=== PATIENT | female | born 2000 | race Caucasian/White ===

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

== ENCOUNTER 2018-02-13 18:45 | Emergency (ER) | payer BC ==
[2018-02-13] MEDS ORDERED: NORMAL SALINE 1000 ML 1,000 ML IV ONE ×2 (20:30→22:47)
[2018-02-13] MEDS ORDERED: METOCLOPRAMIDE HCL INJ/PF 10 MG/2 ML SDV IV ONE (20:30)
--- NOTE | 2018-02-13 20:32 | ER Document Report ---
ED Medical Screen (RME) - General Chief Complaint: Nausea/Vomiting Stated Complaint: CRAMPING/CHEST PAIN Time Seen by Provider: 02/13/18 20:26 Notes: 17-year-old female, at around 6 weeks gestation by last menstrual period reportedly, chief complaint of 2 days of persistent vomiting and nausea. She reports she has pain in her upper abdomen now. Denies fever, dizziness, passing out, vaginal bleeding, lower abdominal pain. No daily medications. Past medical history of appendectomy. TRAVEL OUTSIDE OF THE [place] IN LAST 30 DAYS: No - Related Data Allergies/Adverse Reactions: Latex, Natural Rubber Allergy (Verified 12/29/17 21:11) Past Medical History Renal/ Medical History: Denies: Hx Peritoneal Dialysis Past Surgical History: Reports: Hx Appendectomy Physical Exam - Vital signs Vitals: Temp Pulse Resp BP Pulse Ox 98.8 F 76 16 112/65 100 02/13/18 19:08 02/13/18 19:08 02/13/18 19:08 02/13/18 19:08 02/13/18 19:08 - General General appearance: Appears well In distress: None - Abdominal Tenderness: Tender - Mild generalized upper abdominal tenderness, lower abdomen benign, exam limited by sitting position Course - Re-evaluation Re-evalutation: I have greeted and performed a rapid initial assessment of this patient. A comprehensive ED assessment and evaluation of the patient, analysis of test results and completion of the medical decision making process will be conducted by additional ED providers. - Vital Signs Vital signs: Temp Pulse Resp BP Pulse Ox 98.8 F 76 16 112/65 100 02/13/18 19:08 02/13/18 19:08 02/13/18 19:08 02/13/18 19:08 02/13/18 19:08
[2018-02-13 21:53] LABS: ABSOLUTE LYMPHOCYTES (AUTO) 3.1 10^3/uL (0.5-4.7); ABSOLUTE MONOCYTES (AUTO) 0.6 10^3/uL (0.1-1.4); BASOPHILS % (AUTO) 0.3 % (0-2); EOSINOPHILS % (AUTO) 0.2 % (0-6); HEMATOCRIT 38.5 % (36.0-47.0); HEMOGLOBIN 13.2 g/dL (12.0-15.5); MEAN CORPUSCULAR HEMOGLOBIN 32.3 pg (27.0-33.4); MEAN CORPUSCULAR HGB CONC 34.3 g/dL (32.0-36.0); MEAN CORPUSCULAR VOLUME 94 fl (80-97); PLATELET COUNT 257 10^3/uL (150-450); RED BLOOD COUNT 4.08 10^6/uL (3.72-5.28); RED CELL DISTRIBUTION WIDTH 13.2 % (11.5-14.0); SEGMENTED NEUTROPHILS % (AUTO) 70.5 % (42-78); TOTAL CELLS COUNTED % (AUTO) 100 %; WHITE BLOOD COUNT 12.7 10^3/uL (4.0-10.5)
[2018-02-13 21:59] LABS: APPEARANCE,URINE SLIGHTLY-CLOUDY; BILIRUBIN,URINE NEGATIVE (NEGATIVE); COLOR,URINE YELLOW; GLUCOSE, URINE NEGATIVE (NEGATIVE); KETONES,URINE 80 mg/dL (NEGATIVE); LEUKOCYTE ESTERASE,URINE MODERATE (NEGATIVE); NITRITE,URINE NEGATIVE (NEGATIVE); PROTEIN,URINE 30 mg/dL (NEGATIVE); URINE SPECIFIC GRAVITY 1.029; UROBILINOGEN,URINE NEGATIVE mg/dL (<2.0)
[2018-02-13 22:11] LABS: ALANINE AMINOTRANSFERASE 16 U/L (5-35); ALBUMIN 5.2 g/dL (3.7-5.6); ALKALINE PHOSPHATASE 46 U/L (50-135); ANION GAP 15 (5-19); ASPARTATE AMINO TRANSFERASE 18 U/L (5-30); BILIRUBIN,DIRECT 0.4 mg/dL (0.0-0.4); BILIRUBIN,TOTAL 2.6 mg/dL (0.2-1.3); BLOOD UREA NITROGEN 11 mg/dL (7-20); CALCIUM 10.1 mg/dL (8.4-10.2); CARBON DIOXIDE 21 mmol/L (22-30); CHLORIDE 103 mmol/L (98-107); GLUCOSE 72 mg/dL (75-110); SODIUM 139.4 mmol/L (137-145); TOTAL PROTEIN 8.3 g/dL (6.3-8.2)
[2018-02-13] MEDS ORDERED: PROMETHAZINE HCL INJ 25 MG/1 ML VIAL IM ONE (22:47)
--- NOTE | 2018-02-14 00:03 | ER Document Report ---
ED General - General Chief Complaint: Nausea/Vomiting Stated Complaint: CRAMPING/CHEST PAIN Time Seen by Provider: 02/13/18 20:26 Notes: Patient is a pleasant 17-year-old female presents with complaint of recurrent vomiting. She is approximately 6 weeks . She says she has some mild epigastric abdominal pain with the vomiting. She also has some left lower quadrant abdominal pain. No vaginal bleeding. No abnormal discharge. No dysuria. No fevers. This is her first . She was given Reglan in triage however she continues to vomit and says she did not feels if it helped with her nausea. TRAVEL OUTSIDE OF THE [place] IN LAST 30 DAYS: No - Related Data Allergies/Adverse Reactions: Latex, Natural Rubber Allergy (Verified 12/29/17 21:11) Past Medical History - Social History Smoking Status: Former Smoker Frequency of alcohol use: None Drug Abuse: None Family History: Reviewed & Not Pertinent Patient has suicidal ideation: No Patient has homicidal ideation: No Renal/ Medical History: Denies: Hx Peritoneal Dialysis Past Surgical History: Reports: Hx Appendectomy Review of Systems - Review of Systems Notes: My Normal Review Basic REVIEW OF SYSTEMS: CONSTITUTIONAL : Denies fever, chills, or sweats. Denies recent illness. RESPIRATORY: Denies cough, cold, or chest congestion. Denies shortness of breath, difficulty breathing, or wheezing. GASTROINTESTINAL: Abdominal pain. Recurrent vomiting. GENITOURINARY: Denies difficulty urinating, painful urination, burning, frequency, or blood in urine. FEMALE GENITOURINARY: Denies vaginal bleeding, abnormal or irregular periods. LMP: Currently MUSCULOSKELETAL: Denies neck or back pain or joint pain or swelling. SKIN: Denies rash or skin lesions. NEUROLOGICAL: Denies altered mental status or loss of consciousness. ALL OTHER SYSTEMS REVIEWED AND NEGATIVE. Physical Exam - Vital signs Vitals: Temp Pulse Resp BP Pulse Ox 98.8 F 76 16 112/65 100 02/13/18 19:08 02/13/18 19:08 02/13/18 19:08 02/13/18 19:08 02/13/18 19:08 - Notes Notes: General Appearance: Well nourished, alert, cooperative, no acute distress, no obvious discomfort. Actively vomiting. Emesis is yellow and stomach acid in color. Vitals: reviewed, See vital signs table. Head: no swelling or tenderness to the head Eyes: PERRL, EOMI, Conjuctiva clear Mouth: No decreasd moisture Throat: No tonsillar inflammation, No airway obstruction Lungs: No wheezing, No rales, No rhonci, No accessory muscle use, good air exchange bilaterally. Heart: Normal rate, Regular rythm, No murmur, no rub Abdomen: Normal BS, soft, No rigidity, mild epigastric tenderness to palpation. No right upper quadrant or right lower quadrant abdominal tenderness to palpation. Patient has some mild left lower quadrant tenderness to palpation., No guarding, no rebound, no abdominal masses, no organomegaly Extremities: good pulses in all extremities, no swelling or tenderness in the extremities, no edema. Skin: warm, dry, appropriate color, no rash Neuro: speech clear, oriented x 3, normal affect, responds appropriately to questions. Course - Re-evaluation Re-evalutation: 02/14/18 00:01 On reevaluation the patient is feeling much improved after the Phenergan. She said this helped her nausea significantly. She is no longer vomiting and resting comfortably. Awaiting the results of her ultrasound report. 02/14/18 01:38 Reevaluation patient has no reproducible pain to palpation of the abdomen any further. Her nausea remains controlled and she is feeling well. I feel she is safe to be discharged home. I explained to her that it is little bit concerning that her hCG level is 23,000 yet we cannot yet see a pole. Informed her it is unlikely she has an ectopic being that we can see a yolk sac; however, she still needs to have close follow-up with either her OB doctor or us for reevaluation and repeat of her hCG level. I strongly encouraged her to return to ER immediately if she has recurrent vomiting, fevers , worsening recurrent abdominal pain, or any vaginal bleeding. Patient agrees with plan and will be discharged home. Dictation of this chart was performed using voice recognition software; therefore, there may be some unintended grammatical errors. - Vital Signs Vital signs: Temp Pulse Resp BP Pulse Ox 98.8 F 76 16 112/65 100 02/13/18 19:08 02/13/18 19:08 02/13/18 19:08 02/13/18 19:08 02/13/18 19:08 - Laboratory Result Diagrams: 02/13/18 21:38 02/13/18 21:38 Laboratory results interpreted by me: 02/13/18 02/13/18 02/13/18 21:38 21:38 21:38 WBC 12.7 H Absolute Neutrophils 9.0 H Carbon Dioxide 21 L Glucose 72 L Total Bilirubin 2.6 H Alkaline Phosphatase 46 L Total Protein 8.3 H Beta HCG, Quant Urine Protein 30 H Urine Ketones 80 H Ur Leukocyte Esterase MODERATE H Urine HCG, Qual POSITIVE H 02/13/18 21:38 WBC Absolute Neutrophils Carbon Dioxide Glucose Total Bilirubin Alkaline Phosphatase Total Protein Beta HCG, Quant 70087.00 H Urine Protein Urine Ketones Ur Leukocyte Esterase Urine HCG, Qual Discharge - Discharge Clinical Impression: Hyperemesis gravidarum Condition: Good Disposition: HOME, SELF-CARE Additional Instructions: The Phenergan appeared to work well for your nausea. I have written a prescription for this. We will also send you home with a few Phenergan suppositories to take until you can get your prescription filled. Your ultrasound showed a gestational sac and a yolk sac; however, we cannot yet see the fetus. This potentially is just because you are early in however there is some concern that your hormone level (HCG level) is elevated to a point where we would expect to see a fetus by now. This does not necessarily mean that you are having a miscarriage however it does mean that we need to have your hormone level and potentially a ultrasound repeated in 2-3 days if possible. Please call your OB doctor for reevaluation. If you are unable to get into your OB doctor than you can follow-up here and we will reevaluate you and redo the testing. Please return to the ER immediately if you have intractable vomiting, fevers, severe abdominal pain, or any vaginal bleeding. Prescriptions: Promethazine HCl [Phenergan 25 mg Tablet] 1 tab PO Q6H PRN #15 tablet PRN Reason: Forms: Return to Work
--- NOTE | 2018-02-14 00:11 | RADIOLOGY REPORT (SQ) ---
EXAM DESCRIPTION: US TRANSVAGINAL COMPLETED DATE/TME: 02/13/2018 22:48 CLINICAL HISTORY: 17 years, Female, LLQ abdominal pain in COMPARISON: Prior ultrasound 12/29/2017. TECHNIQUE: Transverse and longitudinal transvaginal sonographic images of the pelvis LIMITATIONS: None. FINDINGS: The uterus measures 9.3 x 4.7 x 5.4 cm. The myometrium is homogenous. The right ovary measures 2.8 x 2.0 x 3.6 cm, the left 3.2 x 2.8 x 2.9 cm. Doppler and spectral analysis with color flow was utilized. Arterial and venous flow to both ovaries. There is an intrauterine gestational sac with visible yolk sac. A pole was not visible at this time and heart tones were not obtainable. There is a 1.0 x 1.1 cm cyst of the left ovary which could reflect corpus luteal cyst. No solid adnexal mass. No free fluid. Current ultrasound age is 5 weeks 6 days.. IMPRESSION: Intrauterine gestational sac with visible yolk sac. No pole or detectable heart tones at this time. Close obstetric follow-up recommended. Probable corpus luteal cyst of the left ovary. copyright 2010 [employer]- All Rights Reserved
[2018-02-14] MEDS ORDERED: PROMETHAZINE HCL 25 MG SUPP (4 SUPP/ER DISP) PR ONE (01:34)
[2018-02-14 02:15] VITALS: BP 120/70
== END 2018-02-14 01:53 | disposition home or self-care (01) ==
LOC: ER 18:45
DX: O21.0 Mild hyperemesis gravidarum (principal); R07.9 Chest pain, unspecified; Z3A.01 Less than 8 weeks gestation of pregnancy; Z91.040 Latex allergy status
CPT/HCPCS: 99284; 96372; 96361; 96374; 36415; 87086; 84702; 85025; 81025; 80053; 81001; 76817; 93976; J3490; J2765; J2550; J7030